=== PATIENT | female | born 1980 | race Caucasian/White ===

== ENCOUNTER 2017-09-20 03:18 | Emergency (ER) | payer BC ==
[~2017-09-20] VITALS: Ht 160 cm; Wt 65.8 kg
--- NOTE | 2017-09-20 03:30 | NUR ---
PATIENT WALKED INTO ER C/O HEBERT LEFT SIDE CP NON RADIATING THAT WOKE HER UP FROM SLEEP 30MINS PRIOR TO ARRIVA. DENIES SOB,N/V. PATIENT ALSO STATES HAD BURNING EPIGASTRIC PAIN 4HRS AGO
--- NOTE | 2017-09-20 03:40 | NUR ---
DR MERCADO INTO EVAL PATIENT
--- NOTE | 2017-09-20 03:47 | NUR ---
Patient discharged to home in stable conditon WITH FAMILY TAKING PATIENT HOME. Written and verbal after care instructions given. Patient verbalizes understanding of instructions. WALKED OUT OF ER WITH NO DISTRESS NOTED
[2017-09-20 03:52] VITALS: BP 140/89
== END 2017-09-20 03:54 | disposition home or self-care (01) ==
LOC: ER 03:20
DX: R07.9 Chest pain, unspecified (principal)
CPT/HCPCS: 93005; A4663